=== PATIENT | male | born 1945 | race Caucasian/White ===

== ENCOUNTER 2016-12-23 10:45 | Emergency (ER) | payer MEDICARE ==
[~2016-12-23] VITALS: Ht 177.8 cm; Wt 99.8 kg
[~2016-12-23 10:45] MED LIST: LORA-205; MET25T
[2016-12-23 11:05] VITALS: BP 185/103
[2016-12-23] MEDS ORDERED: LORazepam 0.5 MG TAB PO ONE (11:45)
== END 2016-12-23 11:52 | disposition home or self-care (01) ==
LOC: ER 10:52
DX: F41.9 Anxiety disorder, unspecified (principal); Z76.0 Encounter for issue of repeat prescription; I10 Essential (primary) hypertension

== ENCOUNTER 2019-10-18 09:03 | Emergency (ER) | payer MEDICARE ==
[~2019-10-18] VITALS: Ht 177.8 cm; Wt 108.9 kg
[2019-10-18 09:16] VITALS: BP 139/88
[2019-10-18] MEDS ORDERED: LORazepam 0.5 MG TAB PO ONE (10:00)
== END 2019-10-18 11:17 | disposition home or self-care (01) ==
LOC: ER 09:03
DX: F41.9 Anxiety disorder, unspecified (principal); I10 Essential (primary) hypertension; Z76.0 Encounter for issue of repeat prescription; Z79.899 Other long term (current) drug therapy
CPT/HCPCS: 93005

== ENCOUNTER 2022-06-09 14:32 | Inpatient (IN) | payer MEDICARE ==
[~2022-06-09] VITALS: Ht 177.8 cm; Wt 101.0 kg
[2022-06-09 16:20] LABS: Basophils # (auto) 0 10 ^3/uL (0-0.2); Basophils % (auto) 0.5 % (0.0-2.0); Eosinophils # (auto) 0.1 10 ^3/uL (0-0.8); Hematocrit 45.4 % (41.0-53.0); Hemoglobin 15.1 g/dL (13.5-17.5); Lymphocytes # (auto) 1.9 10 ^3/uL (0.4-5.4); Lymphocytes % (auto) 22.3 % (10.0-50.0); Mean Corpuscular Hemoglobin 30.6 pg (28.0-32.0); Mean Corpuscular Hgb Conc. 33.3 g/dL (32.0-36.0); Mean Corpuscular Volume 91.9 fL (80.0-100.0); Monocytes # (auto) 0.7 10 ^3/uL (0-1.3); Monocytes % (auto) 8.4 % (0.0-12.0); Neutrophils # (auto) 5.8 10 ^3/uL (1.6-8.6); Neutrophils % (auto) 67.8 % (37.0-80.0); Nucleated Red Blood Cells % 0.2 %; Red Blood Cells 4.94 10^6/uL (4.5-5.90); Red Cell Distribution Width 13.6 % (11.8-14.3); White Blood Cell 8.5 10^3/uL (4.4-10.8)
[2022-06-09 16:37] LABS: Albumin 3.6 g/dL (3.4-5.0); BUN/Creatinine Ratio 19.8; Potassium 4.6 mmol/L (3.5-5.1)
[2022-06-09 16:39] LABS: Bilirubin, Total 0.4 mg/dL (0.2-1.0); Total Protein 6.3 g/dL (6.4-8.2)
[2022-06-09] MEDS ORDERED: PIPERACILLIN-TAZOB 3.375GM 100 ML IV ONE (17:15)
[2022-06-09] MEDS ORDERED: DEXTROSE (50%) 50ML SYRG IV PRN (18:15)
[2022-06-09] MEDS: SODIUM CHLORIDE 0.9% 1,000 ML IV SCH (18:15)
[2022-06-09] MEDS ORDERED: ONDANSETRON HCL 4 MG/2 ML VIAL IV PRN (18:15)
[2022-06-09] MEDS ORDERED: DOCUSATE SOD 100 MG CAP PO PRN (18:15)
[2022-06-09] MEDS ORDERED: VANCOMYCIN PER PHARMACY 0 MG IV SCH (18:15)
[2022-06-09] MEDS: ACCU-CHEK COMFORT CURVE STRIP VI SCH (22:00)
[2022-06-10] MEDS: VANCOMYCIN 1GM/250ML 250 ML IV SCH ×3 (00:12→16:54)
[2022-06-10] MEDS: InsuLIN REG 1unit/0.01ml Soln (100units/ml) SC SCH ×5 (00:33→22:48)
[2022-06-10] MEDS: METOPROLOL TARTRATE 25 MG TAB PO SCH ×3 (01:53→22:46)
[2022-06-10] MEDS: LORazepam 0.5 MG TAB PO PRN ×2 (01:53→15:01)
[2022-06-10] MEDS: cefTRIAXone 1GM/50ML D5W 50 ML IV SCH ×2 (02:26→09:10)
[2022-06-10] MEDS ORDERED: hydrOXYzine HCL 25 MG/ML VL IM PRN (04:30)
[2022-06-10] MEDS: MORPHINE SULFATE INJ 2 MG/ml SYRG IV PRN (05:06)
[2022-06-10] MEDS ORDERED: hydrALAZINE HCL 20 MG/ML VL ONE (05:20)
[2022-06-10] MEDS: hydrALAZINE HCL 20 MG/ML VL IV PRN ×2 (05:20→18:09)
[2022-06-10 05:48] LABS: Urine WBC None Seen /hpf (0 - 3)
[2022-06-10 05:49] LABS: Basophils # (auto) 0.1 10 ^3/uL (0-0.2); Basophils % (auto) 0.5 % (0.0-2.0); Eosinophils # (auto) 0.2 10 ^3/uL (0-0.8); Eosinophils % (auto) 1.7 % (0.0-7.0); Hematocrit 45.4 % (41.0-53.0); Hemoglobin 15.5 g/dL (13.5-17.5); Lymphocytes # (auto) 2.5 10 ^3/uL (0.4-5.4); Lymphocytes % (auto) 26.3 % (10.0-50.0); Mean Corpuscular Hemoglobin 31.4 pg (28.0-32.0); Mean Corpuscular Hgb Conc. 34.2 g/dL (32.0-36.0); Mean Corpuscular Volume 91.7 fL (80.0-100.0); Monocytes # (auto) 0.7 10 ^3/uL (0-1.3); Monocytes % (auto) 7.7 % (0.0-12.0); Neutrophils # (auto) 6.1 10 ^3/uL (1.6-8.6); Neutrophils % (auto) 63.8 % (37.0-80.0); Red Blood Cells 4.95 10^6/uL (4.5-5.90); Red Cell Distribution Width 13.6 % (11.8-14.3); White Blood Cell 9.6 10^3/uL (4.4-10.8)
[2022-06-10 06:06] LABS: Albumin 3.6 g/dL (3.4-5.0); Potassium 3.7 mmol/L (3.5-5.1)
[2022-06-10 06:07] LABS: BUN/Creatinine Ratio 17.1
[2022-06-10 06:09] LABS: Bilirubin, Total 0.9 mg/dL (0.2-1.0); Total Protein 6.9 g/dL (6.4-8.2)
[2022-06-10 06:12] LABS: Urine Bacteria NONE SEEN /hpf (None Seen); Urine Blood Negative /uL (Negative); Urine Specific Gravity 1.009 (1.001-1.035)
[2022-06-10] MEDS: HYDROcodone-ACET 5/325MG TAB PO PRN (06:30)
[2022-06-10] MEDS: ACCU-CHEK COMFORT CURVE STRIP VI SCH ×4 (06:41→22:00)
[2022-06-10] MEDS: SODIUM CHLORIDE 0.9% 1,000 ML IV SCH (09:10)
[2022-06-10] MEDS: ENOXAPARIN SOD 40 MG/0.4 ML SYRINGE SC SCH (10:20)
[2022-06-10] MEDS: PANTOPRAZOLE 40 MG/10 ML VIAL INJ IV SCH (10:20)
[2022-06-10] MEDS ORDERED: VANCOMYCIN 1GM/250ML 250 ML IV SCH (12:00)
[2022-06-11] MEDS: LORazepam 0.5 MG TAB PO PRN ×2 (00:51→22:49)
[2022-06-11] MEDS: MORPHINE SULFATE INJ 2 MG/ml SYRG IV PRN ×2 (03:00→09:54)
[2022-06-11] MEDS: VANCOMYCIN 1GM/250ML 250 ML IV SCH ×3 (03:00→23:30)
[2022-06-11] MEDS: InsuLIN REG 1unit/0.01ml Soln (100units/ml) SC SCH ×4 (08:30→22:00)
[2022-06-11] MEDS: ACCU-CHEK COMFORT CURVE STRIP VI SCH ×4 (08:30→22:49)
[2022-06-11] MEDS: PANTOPRAZOLE 40 MG/10 ML VIAL INJ IV SCH (09:54)
[2022-06-11] MEDS: cefTRIAXone 1GM/50ML D5W 50 ML IV SCH (09:54)
[2022-06-11] MEDS: ENOXAPARIN SOD 40 MG/0.4 ML SYRINGE SC SCH (09:56)
[2022-06-11] MEDS: METOPROLOL TARTRATE 25 MG TAB PO SCH ×3 (09:56→22:53)
[2022-06-11] MEDS: hydrALAZINE HCL 20 MG/ML VL IV PRN (10:05)
[2022-06-11 17:00] VITALS: BP 175/81
[2022-06-11 19:00] VITALS: BP 126/84
[2022-06-11 20:00] VITALS: BP 199/87
[2022-06-11 22:00] VITALS: BP 126/84
[2022-06-12 05:00] VITALS: BP 163/62
[2022-06-12] MEDS: HYDROcodone-ACET 5/325MG TAB PO PRN (05:47)
[2022-06-12] MEDS: ACCU-CHEK COMFORT CURVE STRIP VI SCH ×4 (06:22→22:51)
[2022-06-12] MEDS: InsuLIN REG 1unit/0.01ml Soln (100units/ml) SC SCH ×4 (06:29→22:57)
[2022-06-12 08:50] VITALS: BP 153/81
[2022-06-12] MEDS: ENOXAPARIN SOD 40 MG/0.4 ML SYRINGE SC SCH (09:47)
[2022-06-12] MEDS: PANTOPRAZOLE 40 MG/10 ML VIAL INJ IV SCH (09:47)
[2022-06-12] MEDS: METOPROLOL TARTRATE 25 MG TAB PO SCH ×2 (09:48→22:51)
[2022-06-12] MEDS: VANCOMYCIN 1GM/250ML 250 ML IV SCH ×2 (09:48→18:52)
[2022-06-12] MEDS ORDERED: LACTULOSE 20Gm/30ML SOLN PO ONE (11:30)
[2022-06-12] MEDS: cefTRIAXone 1GM/50ML D5W 50 ML IV SCH (11:35)
[2022-06-12 12:00] LABS: Albumin 3.2 g/dL (3.4-5.0); BUN/Creatinine Ratio 18.3; Bilirubin, Total 0.8 mg/dL (0.2-1.0); Total Protein 5.9 g/dL (6.4-8.2)
[2022-06-12 12:30] VITALS: BP 101/65
[2022-06-12 16:50] VITALS: BP 151/80
[2022-06-12 20:00] VITALS: BP 167/84
[2022-06-12 22:00] VITALS: BP 167/84
[2022-06-12] MEDS: LORazepam 0.5 MG TAB PO PRN (22:52)
[2022-06-13 05:00] VITALS: BP 158/76
[2022-06-13] MEDS: VANCOMYCIN 1GM/250ML 250 ML IV SCH ×2 (05:53→16:00)
[2022-06-13] MEDS: ACCU-CHEK COMFORT CURVE STRIP VI SCH ×4 (07:04→22:22)
[2022-06-13] MEDS: hydrALAZINE HCL 20 MG/ML VL IV PRN ×2 (07:05→22:22)
[2022-06-13] MEDS: InsuLIN REG 1unit/0.01ml Soln (100units/ml) SC SCH ×4 (07:06→22:26)
[2022-06-13 09:00] VITALS: BP 163/70
[2022-06-13] MEDS: ENOXAPARIN SOD 40 MG/0.4 ML SYRINGE SC SCH (10:10)
[2022-06-13] MEDS: cefTRIAXone 1GM/50ML D5W 50 ML IV SCH (10:10)
[2022-06-13] MEDS: METOPROLOL TARTRATE 25 MG TAB PO SCH ×2 (10:12→22:22)
[2022-06-13] MEDS: LORazepam 0.5 MG TAB PO PRN ×2 (10:23→22:22)
[2022-06-13] MEDS ORDERED: LACTULOSE 20Gm/30ML SOLN PO ONE (10:30)
[2022-06-13] MEDS ORDERED: FLEET ENEMA(ADULT) 135 ML PR ONE (10:30)
[2022-06-13 13:00] VITALS: BP 165/72
[2022-06-13 17:00] VITALS: BP 155/82
[2022-06-13 22:00] VITALS: BP 178/91
[2022-06-14] MEDS: VANCOMYCIN 1GM/250ML 250 ML IV SCH ×3 (00:58→21:00)
[2022-06-14 05:00] VITALS: BP 142/71
[2022-06-14] MEDS: ACCU-CHEK COMFORT CURVE STRIP VI SCH ×4 (06:30→22:00)
[2022-06-14] MEDS: InsuLIN REG 1unit/0.01ml Soln (100units/ml) SC SCH ×4 (06:42→22:00)
[2022-06-14 08:51] LABS: Basophils # (auto) 0.1 10 ^3/uL (0-0.2); Basophils % (auto) 0.9 % (0.0-2.0); Eosinophils # (auto) 0.3 10 ^3/uL (0-0.8); Eosinophils % (auto) 2.5 % (0.0-7.0); Hemoglobin 14.9 g/dL (13.5-17.5); Lymphocytes # (auto) 2.2 10 ^3/uL (0.4-5.4); Lymphocytes % (auto) 21.2 % (10.0-50.0); Mean Corpuscular Hemoglobin 30.3 pg (28.0-32.0); Mean Corpuscular Hgb Conc. 32.5 g/dL (32.0-36.0); Mean Corpuscular Volume 93.4 fL (80.0-100.0); Monocytes # (auto) 1.1 10 ^3/uL (0-1.3); Monocytes % (auto) 10.2 % (0.0-12.0); Neutrophils # (auto) 6.8 10 ^3/uL (1.6-8.6); Neutrophils % (auto) 65.2 % (37.0-80.0); Nucleated Red Blood Cells % 0.1 %; Red Blood Cells 4.93 10^6/uL (4.5-5.90); Red Cell Distribution Width 13.7 % (11.8-14.3); White Blood Cell 10.5 10^3/uL (4.4-10.8)
[2022-06-14] MEDS: cefTRIAXone 1GM/50ML D5W 50 ML IV SCH (08:52)
[2022-06-14] MEDS: METOPROLOL TARTRATE 25 MG TAB PO SCH ×2 (08:53→23:31)
[2022-06-14] MEDS: ENOXAPARIN SOD 40 MG/0.4 ML SYRINGE SC SCH (08:53)
[2022-06-14 09:00] VITALS: BP 134/76
[2022-06-14 09:34] LABS: Calcium 9.1 mg/dL (8.5-10.1)
[2022-06-14 13:00] VITALS: BP 160/77
[2022-06-14 13:54] LABS: INR 1.05 (0.9-1.15); Partial Thromboplastin Time 30.3 sec (24.6-33.4)
[2022-06-14] MEDS: hydrALAZINE HCL 20 MG/ML VL IV PRN (15:01)
[2022-06-14] MEDS: LORazepam 0.5 MG TAB PO PRN (17:39)
[2022-06-14 19:58] VITALS: BP 129/68
[2022-06-14 22:05] VITALS: BP 129/68
[2022-06-14] MEDS: metroNIDAZOLE 500 MG TAB PO SCH (23:30)
[2022-06-14] MEDS: HYDROcodone-ACET 5/325MG TAB PO PRN (23:40)
[2022-06-15 05:00] VITALS: BP 147/85
[2022-06-15 06:17] LABS: Basophils # (auto) 0.1 10 ^3/uL (0-0.2); Basophils % (auto) 0.8 % (0.0-2.0); Eosinophils # (auto) 0.2 10 ^3/uL (0-0.8); Eosinophils % (auto) 2.2 % (0.0-7.0); Hematocrit 45.9 % (41.0-53.0); Hemoglobin 15.5 g/dL (13.5-17.5); Lymphocytes # (auto) 1.9 10 ^3/uL (0.4-5.4); Lymphocytes % (auto) 19.9 % (10.0-50.0); Mean Corpuscular Hemoglobin 31.3 pg (28.0-32.0); Mean Corpuscular Hgb Conc. 33.8 g/dL (32.0-36.0); Mean Corpuscular Volume 92.5 fL (80.0-100.0); Monocytes # (auto) 1.1 10 ^3/uL (0-1.3); Monocytes % (auto) 10.9 % (0.0-12.0); Neutrophils # (auto) 6.5 10 ^3/uL (1.6-8.6); Neutrophils % (auto) 66.2 % (37.0-80.0); Nucleated Red Blood Cells % 0.1 %; Red Blood Cells 4.96 10^6/uL (4.5-5.90); Red Cell Distribution Width 13.7 % (11.8-14.3); White Blood Cell 9.8 10^3/uL (4.4-10.8)
[2022-06-15 06:25] LABS: Calcium 9.3 mg/dL (8.5-10.1); Potassium 4.2 mmol/L (3.5-5.1)
[2022-06-15 06:27] LABS: BUN/Creatinine Ratio 18.9
[2022-06-15] MEDS: metroNIDAZOLE 500 MG TAB PO SCH ×3 (06:46→22:45)
[2022-06-15] MEDS: ACCU-CHEK COMFORT CURVE STRIP VI SCH ×4 (06:46→22:48)
[2022-06-15] MEDS: VANCOMYCIN 1GM/250ML 250 ML IV SCH ×2 (06:46→16:50)
[2022-06-15] MEDS: InsuLIN REG 1unit/0.01ml Soln (100units/ml) SC SCH ×4 (06:47→22:47)
[2022-06-15 08:51] VITALS: BP 157/89
[2022-06-15] MEDS: cefTRIAXone 1GM/50ML D5W 50 ML IV SCH (09:00)
[2022-06-15] MEDS: METOPROLOL TARTRATE 25 MG TAB PO SCH ×2 (10:00→22:46)
[2022-06-15] MEDS: ENOXAPARIN SOD 40 MG/0.4 ML SYRINGE SC SCH (10:00)
[2022-06-15] MEDS ORDERED: FLEET ENEMA(ADULT) 135 ML PR ONE (11:30)
[2022-06-15 13:19] VITALS: BP 137/58
[2022-06-15 17:17] VITALS: BP 160/84
[2022-06-15 20:00] VITALS: BP 182/83
[2022-06-15 22:00] VITALS: BP 185/83
[2022-06-15] MEDS: DAKINS QUARTER STR 0.125% (NaHypochlorite) 473 ML TOPICAL SOL TOP SCH (22:48)
[2022-06-16] MEDS: VANCOMYCIN 1GM/250ML 250 ML IV SCH (03:00)
[2022-06-16 05:00] VITALS: BP 167/82
[2022-06-16] MEDS: metroNIDAZOLE 500 MG TAB PO SCH (06:00)
[2022-06-16] MEDS: ACCU-CHEK COMFORT CURVE STRIP VI SCH (06:01)
[2022-06-16] MEDS: InsuLIN REG 1unit/0.01ml Soln (100units/ml) SC SCH (06:02)
[2022-06-16 09:00] VITALS: BP 177/76
[2022-06-16] MEDS: cefTRIAXone 1GM/50ML D5W 50 ML IV SCH (09:00)
[2022-06-16] MEDS: METOPROLOL TARTRATE 25 MG TAB PO SCH (09:51)
[2022-06-16] MEDS: DAKINS QUARTER STR 0.125% (NaHypochlorite) 473 ML TOPICAL SOL TOP SCH (09:52)
[2022-06-16] MEDS: ENOXAPARIN SOD 40 MG/0.4 ML SYRINGE SC SCH (09:52)
[2022-06-16 10:31] VITALS: BP 177/76
== END 2022-06-16 12:30 | disposition hospice, home (50) | DRG 603 ==
LOC: ER 14:32 → OVERFLOW 18:25 → WEST WING 06-11 17:20
PROVIDERS: ADMIT Nurse Practitioner Family; ATTEND Internal Medicine Geriatric Medicine
DX: L03.032 Cellulitis of left toe (principal); M86.8X7 Other osteomyelitis, ankle and foot; E11.65 Type 2 diabetes mellitus with hyperglycemia; E11.42 Type 2 diabetes mellitus with diabetic polyneuropathy; Z20.822 Contact with and (suspected) exposure to COVID-19; E11.69 Type 2 diabetes mellitus with other specified complication; E66.9 Obesity, unspecified; F41.9 Anxiety disorder, unspecified; G20 Parkinson's disease; I10 Essential (primary) hypertension; K59.00 Constipation, unspecified; Z51.5 Encounter for palliative care
CPT/HCPCS: 36415; 71045; 73700; 73718; 80048; 80053; 80202; 81001; 82962; 83036; 83605; 83880; 84484; 85025; 85379; 85610; 85652; 85730; 86141; 87040; 87426; 93926; 93971; 96365; 96366; 96368; 96372; 96375; 97116; 97163; 97530; C9113; G0378; J0696; J1815; J2405; J2543